=== PATIENT | female | born 1960 | race Caucasian/White ===

== ENCOUNTER → 2019-02-04 | Outpatient (CLI) | payer OTHER | LOC: CIMAGING 14:31 | PROVIDERS: ATTEND Family Medicine | DX: R05 Cough (principal); J84.9 Interstitial pulmonary disease, unspecified | CPT/HCPCS: 71100-PO ==

== ENCOUNTER → 2019-03-22 | Outpatient (CLI) | payer OTHER | LOC: CIMAGING 13:13 ==

== ENCOUNTER 2019-04-21 11:46 | Day surgery (SDC) | payer OTHER | END 2019-04-21 15:24 | disposition home or self-care (01) | LOC: FSGY 11:46 ==